=== PATIENT | male | born 1950 | race Hispanic/Latino ===

== ENCOUNTER 2021-03-07 04:14 | Emergency (ER) | payer OTHER, MEDICARE ==
[~2021-03-07] VITALS: Ht 170.2 cm; Wt 68.9 kg
[2021-03-07 05:33] LABS: APPEARANCE,URINE Cloudy (CLEAR); BILIRUBIN,URINE Negative (NEGATIVE); COLOR,URINE Orange (YELLOW); GLUCOSE, URINE (UA) Negative (NEGATIVE); KETONES,URINE 15 mg/dL (NEGATIVE); LEUKOCYTE ESTERASE ,URINE Small (NEGATIVE); NITRATE,URINE Negative (NEGATIVE); OCCULT BLOOD,URINE Large (NEGATIVE); PROTEIN,URINE POS 2+ mg/dL (NEGATIVE)
[2021-03-07 05:41] LABS: BACTERIA,URINE Few /HPF (None Seen); MUCUS,URINE Rare LPF (None Seen); RBC,URINE >100 /HPF (0-1); SQUAMOUS EPITHELIAL CELL,UR 0-2 /HPF (0-2)
[2021-03-07] MEDS ORDERED: TAMSULOSIN HCL 0.4 MG CAP.ER.24H ONE (06:04)
[2021-03-07 06:19] LABS: BASOPHILS % (AUTO) 0.4 % (0.0-5.0); EOSINOPHILS % (AUTO) 0.3 % (0.0-8.0); HEMATOCRIT 40.2 % (42-54); LYMPHOCYTES % (AUTO) 12.3 % (21.0-51.0); MEAN CORPUSCULAR HEMOGLOBIN 29.7 pg (27.0-33.0); MEAN CORPUSCULAR HGB CONC 35.1 g/dL (32.0-36.0); MEAN CORPUSCULAR VOLUME 84.6 fL (79-99); MONOCYTES % (AUTO) 7.4 % (3.0-13.0); NEUTROPHILS % (AUTO) 79.2 % (40.0-77.0); PLATELET COUNT (AUTO) 119 K/uL (130-400); RED BLOOD CELL COUNT(AUTO) 4.75 MIL/uL (4.50-6.20); WHITE BLOOD COUNT (AUTO) 6.9 K/uL (4.8-10.8)
[2021-03-07 06:26] LABS: CREATININE 1.2 mg/dL (0.5-1.5); POTASSIUM 3.5 mmol/L (3.5-5.1)
[2021-03-07 06:30] LABS: BILIRUBIN,TOTAL 0.7 mg/dL (0.2-1.0); TOTAL PROTEIN, SERUM 7.5 g/dL (6.0-8.3)
[2021-03-07 07:58] VITALS: BP 115/75
[2021-03-07] MEDS ORDERED: ONDA4TAB10 PO (08:04)
[2021-03-07] MEDS ORDERED: DICY20TA2 PO (08:04)
[2021-03-07] MEDS ORDERED: PHEN-776 PO (08:04)
[2021-03-07] MEDS ORDERED: CEPH500B PO (08:04)
[2021-03-07] MEDS: CEFTRIAXONE 1G VIAL IVP SCH ×2 (08:34→08:41)
[2021-03-07] MEDS ORDERED: LIDOCAINE HCL-MPF 1% 2ML VIAL ONE (08:38)
[2021-03-07 09:16] VITALS: BP 113/77
[2021-03-07] MEDS ORDERED: TAMSULOSIN HCL 0.4 MG CAP.ER.24H PO SCH (21:00)
== END 2021-03-07 09:18 | disposition home or self-care (01) ==
LOC: EDH 04:14
DX: N39.0 Urinary tract infection, site not specified (principal); R33.9 Retention of urine, unspecified; E78.00 Pure hypercholesterolemia, unspecified; I10 Essential (primary) hypertension; Z79.899 Other long term (current) drug therapy
CPT/HCPCS: 36415; 51702; 74176; 80053; 81001; 85025; 87088; 96374; 99284; J0696 ×2; J3490